=== PATIENT | female | born 1970 | race Two or more races ===

== ENCOUNTER 2021-08-31 10:15 | Inpatient (IN) | payer OTHER ==
[~2021-08-31] VITALS: Ht 154.9 cm; Wt 61.2 kg
[2021-08-31] MEDS ORDERED: MINOCYCLINE HC100 M1 PO (11:54)
[2021-09-05] MEDS ORDERED: FLAGYL500MG PO (07:40)
[2021-09-05] MEDS ORDERED: IBU800 MG PO (07:40)
[2021-09-05] MEDS ORDERED: OXYC1TAB9 PO (07:40)
[2021-09-05] MEDS ORDERED: DOXYCYCLINE HY100 M2 PO (07:40)
[2021-09-05] MEDS ORDERED: LEVSIN/SL0.125 MG SL (07:40)
== END 2021-09-05 13:01 | disposition home or self-care (01) | DRG 743 ==
LOC: ADM 10:15 → EDSTATUS 10:15 → OB/GYN 09-03 07:00 → O/R 09-03 08:24 → OB/GYN 09-03 10:15 → SURG 09-03 19:11
PROVIDERS: ADMIT Obstetrics & Gynecology Gynecology; ATTEND Obstetrics & Gynecology Gynecology
PROC: 0UB70ZZ Excision of Bilateral Fallopian Tubes, Open Approach (ICD-10-PCS; 2021-09-03)
PROC: 0UT90ZZ Resection of Uterus, Open Approach (ICD-10-PCS; principal; 2021-09-03 07:00)
DX: D25.1 Intramural leiomyoma of uterus (principal); N70.11 Chronic salpingitis; D25.2 Subserosal leiomyoma of uterus; N83.8 Other noninflammatory disorders of ovary, fallopian tube and broad ligament